=== PATIENT | male | born 1975 | race Caucasian/White ===

== ENCOUNTER 2023-05-24 10:33 | Emergency (ER) | payer BC, OTHER ==
[2023-05-24 10:44] VITALS: BP 118/67; PULSE 67; RESP 18; TEMP 98.3; BMI 29.2
[2023-05-24] MEDS ORDERED: IBUPROFEN 600 MG TABLET (FP) PO ONE ×2 (11:36→11:37)
== END 2023-05-24 12:53 | disposition home or self-care (01) ==
LOC: JER 10:33 → JERFT 10:33
DX: M19.011 Primary osteoarthritis, right shoulder (principal); M25.511 Pain in right shoulder
CPT/HCPCS: 73030-TC-RT-FY; 99283-25

== ENCOUNTER 2023-06-01 19:52 | Emergency (ER) | payer BC, OTHER ==
[2023-06-01 20:07] VITALS: BP 119/77; PULSE 75; RESP 18; TEMP 98.9; BMI 29.2
[2023-06-01] MEDS ORDERED: traMADol HCL 50 MG TABLET PO ONE (21:25)
[2023-06-01] MEDS ORDERED: traMADol HCL 50 MG TABLET ONE (21:38)
== END 2023-06-01 22:40 | disposition home or self-care (01) ==
LOC: JER 19:52 → JERFT 19:52
DX: M19.011 Primary osteoarthritis, right shoulder (principal); M25.511 Pain in right shoulder
CPT/HCPCS: 99283-25